=== PATIENT | female | born 1960 | race Two or more races ===

== ENCOUNTER 2019-03-21 01:36 | Emergency (ER) | payer MEDICARE, OTHER ==
[~2019-03-21] VITALS: Ht 157.5 cm; Wt 68.0 kg
[2019-03-21] MEDS ORDERED: SIMETHICONE80 MG ORAL (01:47)
[2019-03-21] MEDS ORDERED: RISPERDAL0.5 MG ORAL (01:47)
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
[2019-03-21 01:50] VITALS: BP 136/92
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
--- NOTE | 2019-03-21 02:14 | NUR ---
ED Nurse Note: x ray at bed side
[2019-03-21] MEDS ORDERED: IBUPROFEN600 MG ORAL (02:54)
[2019-03-21] MEDS ORDERED: TYLENOL325 MG ORAL (02:54)
[2019-03-21] MEDS ORDERED: Acetaminophen 500mg (ES) tab ORAL ONE (03:00)
--- NOTE | 2019-03-21 03:37 | Diagnostic Imaging Report ---
EXAM: XR Left Wrist Complete, 3 or More Views CLINICAL HISTORY: INJ TECHNIQUE: Frontal, lateral and oblique views of the left wrist. COMPARISON: none FINDINGS: Bones joints: Unremarkable. No acute fracture. No dislocation. Soft tissues: Unremarkable. No radiopaque foreign body. IMPRESSION: Normal left wrist x-rays.
--- NOTE | 2019-03-21 03:38 | Diagnostic Imaging Report ---
EXAM: XR Left Hand Complete, 3 or More Views CLINICAL HISTORY: INJ TECHNIQUE: Frontal, lateral and oblique views of the left hand. COMPARISON: none FINDINGS: Bones joints: Unremarkable. No acute fracture. No dislocation. Soft tissues: Unremarkable. No radiopaque foreign body. IMPRESSION: Normal left hand x-rays.
[2019-03-21 03:48] VITALS: BP 132/82
--- NOTE | 2019-03-21 03:48 | NUR ---
ER DISCHARGE NOTE: Patient is cleared to be discharged per ERMD, pt is aox4, on room air, with stable vital signs. pt was given dc and prescription instructions, pt was able to verbalize understanding, pt id band removed without complications. pt is able to ambulate with steady gait. pt took all belongings.
== END 2019-03-21 03:48 | disposition home or self-care (01) ==
LOC: EMR 01:57
DX: M25.532 Pain in left wrist (principal); S60.812A Abrasion of left wrist, initial encounter; F41.9 Anxiety disorder, unspecified; F32.9 Major depressive disorder, single episode, unspecified; Z90.49 Acquired absence of other specified parts of digestive tract; Y04.2XXA Assault by strike against or bumped into by another person, initial encounter; Y92.9 Unspecified place or not applicable
CPT/HCPCS: 29130; 99284